=== PATIENT | male | born 1950 | race Caucasian/White ===

== ENCOUNTER → 2019-03-15 | Outpatient (CLI) | payer MEDICARE ==
[~2019-03-15] MED LIST: AMLO5TAB9 PO; LOSA100T58 PO; OMEG1CAP31 PO; ROSU10TA22 PO
== END | disposition home or self-care (01) ==
LOC: RAH 12:53
PROVIDERS: ATTEND Orthopaedic Surgery
DX: M75.101 Unspecified rotator cuff tear or rupture of right shoulder, not specified as traumatic (principal); M65.9 Synovitis and tenosynovitis, unspecified
CPT/HCPCS: 73221

== ENCOUNTER 2019-05-24 09:48 | Day surgery (SDC) | payer MEDICARE ==
[2019-05-23 16:21] VITALS: BP 153/76
[2019-05-23 16:36] LABS: CREATININE 1.3 mg/dL (0.5-1.5); POTASSIUM 4.4 mmol/L (3.5-5.1)
[2019-05-23 16:44] LABS: BASOPHILS % (AUTO) 0.9 % (0.0-5.0); EOSINOPHILS % (AUTO) 5.5 % (0.0-8.0); HEMATOCRIT 40.7 % (42-54); LYMPHOCYTES % (AUTO) 39.6 % (21.0-51.0); MEAN CORPUSCULAR HGB CONC 35.3 g/dL (32.0-36.0); MEAN CORPUSCULAR VOLUME 96.4 fL (79-99); MONOCYTES % (AUTO) 9.1 % (3.0-13.0); NEUTROPHILS % (AUTO) 44.9 % (40.0-77.0); NUCLEATED RED BLOOD CELLS 0.1 % (0.0-0.19); PLATELET COUNT (AUTO) 263 K/uL (130-400); RED BLOOD CELL COUNT(AUTO) 4.23 MIL/uL (4.50-6.20); RED CELL DISTRIBUTION WIDTH 12.5 % (11.0-15.5); WHITE BLOOD COUNT (AUTO) 5.5 K/uL (4.8-10.8)
[~2019-05-24] VITALS: Ht 170.2 cm; Wt 81.7 kg
[2019-05-24] VITALS (16 sets, daily range): BP systolic 14–155; BP diastolic 51–80
[~2019-05-24 09:48] MED LIST changes: +ASCO500C18 PO; +ASPI-555 PO; +CLARITIN D PO; +FLUT15.845 NS; +LANS15CA12 PO; +MULT-1192 PO; +TUMERIC PO
[2019-05-24] MEDS ORDERED: LACTATED RINGERS 1000ML 1,000 ML IV ONE (10:16)
[2019-05-24] MEDS: CEFAZOLIN SODIUM 1 GM VIAL IVP SCH ×2 (10:30→14:45)
--- NOTE | 2019-05-24 11:00 | NUR ---
POTENTIAL FOR INFECTION: SHAVED RT SHOULDER / RT UPPER ARM PER PAULETTE MCCOLLUM, FOLLOWED BY WIPING WITH RODRIGO: 2% CHLORHEXIDINE GLUCONATE CLOTH PATIENTS PRE-OP SKIN PREP.
[2019-05-24] MEDS ORDERED: SUCCINYLCHOLINE 200MG/10ML SYR ONE (14:03)
[2019-05-24] MEDS ORDERED: PROPOFOL 10 MG/ML 20ML VIAL IV ONE (14:03)
[2019-05-24] MEDS ORDERED: MIDAZOLAM HCL 1 MG/ML 2ML VIAL ONE (14:03)
[2019-05-24] MEDS ORDERED: LIDOCAINE PF 2% 5ML ABBOJECT ONE (14:03)
[2019-05-24] MEDS ORDERED: GLYCOPYRROLATE 1 MG/5 ML SYRINGE ONE (14:03)
[2019-05-24] MEDS ORDERED: DEXAMETHASONE SOD PHOSPHATE 10MG/ML 1ML VIAL ONE (14:03)
[2019-05-24] MEDS ORDERED: NEOSTIGMINE 5MG/5ML SYR IV ONE (14:04)
[2019-05-24] MEDS ORDERED: ONDANSETRON HCL 4 MG/2 ML VIAL ONE (14:04)
[2019-05-24] MEDS ORDERED: ROCURONIUM 10MG/1ML SYR 10 MG/ML ML ONE (14:04)
[2019-05-24] MEDS ORDERED: FENTANYL CITRATE PF 50 MCG/1 ML 2ML VIAL ONE (14:05)
[2019-05-24] MEDS ORDERED: ROPIVACAINE 0.5% 5MG/ML 30ML IJ ONE (14:08)
[2019-05-24] MEDS ORDERED: EPHEDRINE SULFATE 50 MG/ML AMPULE ONE (15:20)
[2019-05-24] MEDS ORDERED: MELO-108 PO (18:47)
[2019-05-24] MEDS ORDERED: HYDR-4457 PO (18:47)
[2019-05-24] MEDS ORDERED: CEPH500B PO (18:47)
--- NOTE | 2019-05-24 18:57 | NUR ---
post received pt from [facility],s/p right shoulder arthroscopy rotator cuff repair. small gauze dressing covered with tegaderm x 4 noted to right shoulder area. slight swelling to site. no redness or drainage noted. arm sling in place. Patient got nerve block but was able to wiggle fingers to right hand . Patient stated able to feel his hand and lower arm but not his upper arm. Plan of care discuss with patient and spouse, patient fully awake on arrival. vs stable. call light within reach
--- NOTE | 2019-05-24 19:30 | NUR ---
dc pt dc home via [facility], no distress noted. pt denied any pain or discomforts. arm sling to right arm in place. pt accompanied by spouse.
== END 2019-05-24 19:30 | disposition home or self-care (01) ==
LOC: DAH 09:48
PROVIDERS: ATTEND Orthopaedic Surgery
DX: M75.111 Incomplete rotator cuff tear or rupture of right shoulder, not specified as traumatic (principal); M75.41 Impingement syndrome of right shoulder; M19.011 Primary osteoarthritis, right shoulder; I10 Essential (primary) hypertension; E78.00 Pure hypercholesterolemia, unspecified; F17.210 Nicotine dependence, cigarettes, uncomplicated; Z98.890 Other specified postprocedural states; Z79.899 Other long term (current) drug therapy; Z79.82 Long term (current) use of aspirin; Z96.642 Presence of left artificial hip joint
CPT/HCPCS: 29824; 29826; 29827; 36415; 64415; 76942; 80048; 85025; A4215; A4221; A4222; A4223; A4565; A4600; A4649 ×6; A4663; A4930 ×2; A5120; A6204; C1713 ×2; G0168; J0330; J0690; J1100; J2001; J2250; J2405; J2704; J2710; J2795; J3010; J3490 ×2; J7030; J7120